=== PATIENT | male | born 2005 | race Caucasian/White ===

== ENCOUNTER 2025-05-18 12:10 | Emergency (ER) | payer BC ==
[~2025-05-18 12:10] MED LIST: Iopamidol 300 61% 100 ML VIAL FS ONE
[2025-05-18 12:52] LABS: #Basophils 0.03 10x3/uL (0.0-0.2); #Eosinophils 0.04 10x3/uL (0.0-0.5); #Monocytes 0.65 10x3/uL (0.0-1.1); #Neutrophils 10.80 10x3/uL (1.5-8.4); %Basophils 0.2 % (0.0-2.0); %Eosinophils 0.3 % (0.0-6.0); %Lymphocytes 5.5 % (18.0-47.0); %Monocytes 5.3 % (0.0-10.0); %Neutrophils 88.4 % (40.0-75.0); Hematocrit 43.4 % (38.8-50.0); Hemoglobin 15.5 g/dL (13.5-17.5); Mean Corpuscular Hemoglobin 29.6 pg (27.0-33.0); Mean Corpuscular Volume 82.8 fL (81.2-95.1); Platelet Count 235 10x3/uL (150-450); Red Blood Cell (RBC) Count 5.24 10x6/uL (4.32-5.72); White Blood Cell (WBC) Count 12.23 10x3/uL (3.5-10.5)
[2025-05-18 13:15] LABS: ALT (SGPT) 19 U/L (Less than 45); AST (SGOT) 26 U/L (11-34); Albumin 4.5 g/dL (3.1-4.5); Alkaline Phosphatase 67 U/L (50-130); Anion Gap 14 mmol/L (10-20); BUN (Urea Nitrogen) 19 mg/dL (8.4-21.0); Bilirubin, Total 3.0 mg/dL (0.3-1.2); CK (CPK) 97 U/L (30-200); Calc. Creatinine Clearance 0 mL/min (70-130); Calcium 9.6 mg/dL (7.8-10.44); Carbon Dioxide 19 mmol/L (22-29); Chloride 107 mmol/L (98-107); Globulin 2.8 g/dL (2.4-3.5); Glucose 105 mg/dL (70-105); Lipase 15 U/L (8-78); Potassium 3.4 mmol/L (3.5-5.1); Sodium 137 mmol/L (136-145)
[2025-05-18] MEDS ORDERED: Metoclopramide HCl 10 MG (2 mL) VIAL ONE (13:39)
[2025-05-18] MEDS ORDERED: Acetaminophen 500 MG TAB ONE (16:06)
[2025-05-18 16:31] LABS: Glucose, Urine (Dipstick) Normal (Negative); Leukocyte Negative (Negative); Protein, Urine (Dipstick) Negative (Neg-Trace); Specific Gravity, Urine 1.010 (1.005-1.030)
[2025-05-18 16:51] LABS: RBC/HPF 0-3 HPF (0-3)
[2025-05-18 16:58] LABS: Bacteria/HPF 1+ HPF (None Seen); CAUTI Indications for Culture Pelvic or flank pain; WBC/HPF 0-3 HPF (0-3)
[2025-05-18 17:00] LABS: Urine Culture Reflex No No
[2025-05-18] MEDS ORDERED: Dicyclomine 20 MG TAB ONE (18:11)
== END 2025-05-18 23:00 | disposition home or self-care (01) ==
LOC: CSHERS 12:10
DX: A05.9 Bacterial foodborne intoxication, unspecified (principal); E86.0 Dehydration; E87.6 Hypokalemia
CPT/HCPCS: 36415; 74177; 76705; 80053; 81001; 82550; 83605; 83690; 85025; 87040; 87081; 87428; 87430; 93005; 96361; 96374; J2765; Q9967